=== PATIENT | female | born 1985 | race Caucasian/White ===

== ENCOUNTER 2018-10-12 19:58 | Inpatient (IN) | payer MEDICAID, OTHER ==
[2018-10-12] MEDS ORDERED: CERVIDIL VG ONE (23:53)
[2018-10-12] MEDS ORDERED: STADOL IV PRN (23:53)
[2018-10-12] MEDS ORDERED: AMPICILLIN/NS 2 GM/100 ML 2 GM/100 ML BAG IV ONE (23:53)
[2018-10-13 00:22] LABS: Hematocrit 27.2 % (30.3-42.9); Hemoglobin 8.5 gm/dl (10.1-14.3); Mean Corpuscular HGB Conc 31 % (30-34); Platelet Count 263 K/mm3 (140-440); Red Blood Count 4.34 M/mm3 (3.65-5.03)
[2018-10-13 00:26] LABS: Mean Corpuscular Volume 63 fl (79-97)
[2018-10-13 00:27] LABS: Red Cell Distribution Width 22.8 % (13.2-15.2)
[2018-10-13] MEDS: LACTATED RINGERS 1,000 ML IV SCH ×2 (00:30→11:28)
[2018-10-13] MEDS: SUBLIMAZE IV PRN ×2 (05:51→12:09)
[2018-10-13] MEDS ORDERED: AMPICILLIN/NS 1 GM/50 ML 1 GM/50 ML BAG IV SCH (06:00)
[2018-10-13] MEDS ORDERED: AMPICILLIN/NS 1 GM/50 ML 1 GM/50 ML BAG ONE (06:01)
--- NOTE | 2018-10-13 11:38 | History and Physical Report ---
History of Present Illness Date of examination: 10/13/18 (11:18) Date of admission: 10/12/18 19:58 Chief complaint: Induction of labor History of present illness: 33yo Fe DAT 10/17/2018 ([place]) 39w 3d presents for induction of labor. Pt initiated care with [facility] at 7w4d. Her is significant for AMA (33yo), maternal obesity with history of macrosomia (proven pelvis #9lbs, early GTT 118), Anemia (Ferrous sulfate 325mg BID), LGA (no Ultrasound report available), hx of EAB 2016 d/t Trisomy 18. 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 denies: smoking, alcohol abuse, prescription drug abuse, IV drug use - Obstetrical History Expected Date of Delivery: 10/17/18 Actual Gestation: 39 Week(s) 3 Day(s) : 5 Para: 2 Hx # Term Pregnancies: 2 Number of Pregnancies: 0 Spontaneous Abortions: 2 Induced : 0 Number of Living Children: 2 #1 Gender: Male year: 2,006 Birthweight: 4.082 kg Method of Delivery: Vaginal Gestational age at delivery: 40 Complications: other (macrosomia ) #2 Infant Gender: Male year: 2,016 Birthweight: 3.629 kg Method of Delivery: Vaginal Gestational age at delivery: 40 Complications: none #3 year: 2,016 (SAB) #4 year: 2,017 (Termination; Trimsomy 18) Medications and Allergies Allergies Allergy/AdvReac Type Severity Reaction Status Date / Time No Known Allergies Allergy Verified 10/13/18 00:06 Home Medications Medication Instructions Recorded Confirmed Last Taken Type Vit 93/Iron Fum/Folic 1 each PO QDAY #30 tablet 02/12/15 Unknown Rx [ Formula Tablet] Active Meds: Active Medications Butorphanol Tartrate (Stadol) 2 mg IV Q2H PRN PRN Reason: Pain , Severe (7-10) Fentanyl (Sublimaze) 100 mcg IV Q2H PRN PRN Reason: Labor Pain Last Admin: 10/13/18 05:51 Dose: 100 mcg Documented by: Lactated Ringer's (Lactated Ringers) 1,000 mls @ 125 mls/hr IV DIRECT MARY Last Admin: 10/13/18 00:30 Dose: 125 mls/hr Documented by: Ampicillin Sodium (Ampicillin/Ns 1 Gm/50 Ml) 1 gm in 50 mls @ 100 mls/hr IV Q4HR MARY; Protocol Review of Systems Cardiovascular: no chest pain, no shortness of breath Respiratory: no shortness of breath Breasts: normal Gastrointestinal: no abdominal pain, no nausea, no vomiting, no diarrhea Genitourinary: normal appearance, contractions (irregular), no genital sores Integumentary: no rash, no sores, no lesions Endocrine: other (Morbid obesity) - Vital Signs Vital signs: Vital Signs Pulse Pulse Ox 71 98 10/12/18 22:10 10/12/18 22:10 Temp Pulse Resp BP Pulse Ox 97.8 F 68 20 97/53 98 10/13/18 07:55 10/13/18 10:09 10/13/18 05:51 10/13/18 10:09 10/13/18 05:33 - Physical Exam Breasts: Positive: normal Cardiovascular: Regular rate, Normal S1, Normal S2, No murmurs Lungs: Positive: Clear to auscultation, Normal air movement Abdomen: Positive: normal appearance, soft, normal bowel sounds. Negative: distention Genitourinary (Female): Positive: normal external genitalia, normal perenium. Negative: perineal/vulvar lesions Vulva: both: normal Vagina: Positive: normal moisture Uterus: Positive: enlarged (Gravid) Anus/Rectum: Positive: normal perianal skin Extremities: Positive: normal Deep Tendon Reflex Grade: Normal +2 - Obstetrical FHR: category 1 Uterine Contraction Monitor Mode: External Cervical Dilatation: 6 (Cervidil removed. AROM, lg amt clear fluid. IUPC incerted in gentle fasion. FSE applied, ) Cervical Effacement Percentage: 80 station: -2 Uterine Contraction Pattern: Irregular Uterine Tone Measurement Phase: Resting Uterine Contraction Intensity: Mild Results Result Diagrams: 10/12/18 22:40 Abnormal lab results 10/12/18 Range/Units 22:40 Hgb 8.5 L (10.1-14.3) gm/dl Hct 27.2 L (30.3-42.9) % MCV 63 L (79-97) fl MCH 20 L (28-32) pg RDW 22.8 H (13.2-15.2) % All other labs normal. Assessment and Plan A: Term IUP at 39w3d AMA; 33 yo Morbid obesity GBS positive Asymptomatic Anemia; FeS04 325mg BID Category 1 tracing Cervidil IOL 10/12; Removed this am AROM 10/13 @11:18, lg amt, clear fluid. IUPC and FSE placed without difficulty P: Routine labor orders May have IV pain med/epidural PRN GBS prophylaxis Pitocin Augmentation Anticiapte
[2018-10-13] MEDS ORDERED: PITOCin/NS 30 UNIT/500ML 30 UNITS/500 ML BAG IV SCH (12:00)
[2018-10-13] MEDS ORDERED: PITOCin/NS 20 UNIT/1000ML DRIP 20 UNITS/1,000 ML BAG IV SCH (12:00)
--- NOTE | 2018-10-13 13:11 | Procedure Note ---
OB Delivery Note - Delivery Date of Delivery: 10/13/18 (12:33) Surgeon: OUMSANE GALLARDO (ANTHONY) Estimated blood loss: <100cc - Vaginal Delivery presentation: vertex Delivery position: OA Delivery induction: cervidil Delivery augmentation: rupture of membranes, pitocin Delivery monitor: internal FHT, internal uterine Route of delivery: (12:33) Delivery placenta: spontaneous (12:40) Delivery cord: nuchal cord (x3 loose), 3 umbilical vessels Episiotomy: none Delivery laceration: 1st degree (small 1st degree; approximates well; left unrepaired) Anesthesia: intravenous Delivery comments: viable male , DEREK position, loose nuchal cord x3, delivered intact via somersault maneuver at 12:33. Spontaneous loud lusty cry. Infant placed [id number] on mothers abdomen. Delayed cord clamping and then cut by FOB with my guidance. Cord blood collected per protocol. Spontaneous mejía delivery of intact placenta at 12:40. Small 1st degree perineal laceration left unrepaired. Approximates well. FF@U-2. EBL <100cc. Infant and mother left in stable condition in L&D. - Infant A at 1 minute: 8 at 5 minutes: 9 Gender: Male (9lbs 10oz, 4376 grams, 21.5")
[2018-10-13] MEDS ORDERED: PITOCin/NS 20 UNIT/1000ML DRIP 20,000 MILLIUNITS/1,000 ML BAG IV ONE (15:06)
[2018-10-13] MEDS ORDERED: TYLENOL PO PRN (16:02)
[2018-10-13] MEDS ORDERED: TUCKS PAD TP PRN (16:02)
[2018-10-13] MEDS ORDERED: DULCOLAX PR PRN (16:02)
[2018-10-13] MEDS ORDERED: LANSINOH TP PRN (16:02)
[2018-10-13] MEDS ORDERED: BENADRYL PO PRN (16:02)
[2018-10-13] MEDS ORDERED: NORCO 5/325 PO PRN (16:02)
[2018-10-13] MEDS ORDERED: PHENERGAN PO PRN (16:02)
[2018-10-13] MEDS ORDERED: ZOFRAN IV PRN (16:02)
[2018-10-13] MEDS ORDERED: MILK OF MAGNESIA PO PRN (16:02)
[2018-10-13] MEDS ORDERED: SODIUM CHLORIDE FLUSH SYRINGE 10 ML IV NR (17:00)
[2018-10-13] MEDS: IBUPROFEN PO SCH ×2 (18:24→22:48)
[2018-10-14 05:42] LABS: Hematocrit 25.1 % (30.3-42.9); Hemoglobin 7.7 gm/dl (10.1-14.3)
[2018-10-14] MEDS: IBUPROFEN PO SCH ×2 (07:10→21:58)
--- NOTE | 2018-10-14 09:31 | Progress Note ---
Assessment and Plan A: 33 yo , PPD1, AMA Anemia P: Infed 100 mg IM x one dose Continue Iron TID po with OJ at home after d/c D/C home today F/U in office in 6 wks Subjective - Subjective Date of service: 10/14/18 Principal diagnosis: Patient reports: other (No concerns offered, states she is feeling well and wishes to go home today.) Objective - Vital Signs Vital Signs: Vital Signs - 12hr 10/13/18 10/14/18 22:20 07:55 Temperature 98.0 F 98.4 F Pulse Rate 71 77 Respiratory 20 18 Rate Blood Pressure 124/69 102/64 O2 Sat by Pulse 98 98 Oximetry - Exam Breasts: normal Cardiovascular: Regular rate, Normal S1, Normal S2 Lungs: Clear to auscultation, Normal air movement Abdomen: Present: normal appearance, normal bowel sounds Uterus: Present: firm, fundal height below umbilicus (U-1) Deep Tendon Reflex Grade: Normal +2 - Labs Labs: Abnormal Labs 10/12/18 10/14/18 22:40 05:31 Hgb 8.5 L 7.7 L Hct 27.2 L 25.1 L MCV 63 L MCH 20 L RDW 22.8 H Laboratory Results - last 24 hr 10/12/18 10/14/18 22:40 05:31 Hgb 7.7 L Hct 25.1 L RPR Nonreactive
--- NOTE | 2018-10-14 09:35 | Discharge Summary ---
Providers - Providers Date of Admission: 10/12/18 19:58 Date of discharge: 10/14/18 Attending physician: JUAN CAGE MD Primary care physician: JUAN CAGE MD Hospitalization Delivery: Episiotomy: none Laceration: 1st degree Other procedures: none complications: other (Anemia) Discharge diagnosis: IUP at term delivered [place] baby: male Hospital course: See Admission H & P; OB delivery summary and OB PP notes Condition at discharge: Stable Disposition: DC-01 TO HOME OR SELFCARE - Discharge Diagnoses (1) (normal spontaneous vaginal delivery) Status: Acute Plan - Provider Discharge Summary Activity: routine, no sex for 6 weeks, no heavy lifting 4 weeks, no strenuous exercise Diet: routine Instructions: other (Discussed importance of continuing iron supplementation at home, three times per day. Verbalized understanding) Additional instructions: [] Smoking cessation referral if applicable(refer to patient education folder for contact #) [] Refer to [facility] Booklet Call your doctor immediately for: * Fever > 100.5 * Heavy vaginal bleeding ( >1 pad per hour) * Severe persistent headache * Shortness of breath * Reddened, hot, painful area to leg or breast * Drainage or odor from incision. * Keep incision clean and dry at all times and follow doctor's instructions regarding bathing/showering - Follow up plan Follow up: JUAN CAGE MD [Primary Care Provider] - 6 Weeks
[2018-10-14] MEDS ORDERED: INFED IM NR ×2 (10:00→20:00)
[2018-10-15] MEDS: IBUPROFEN PO SCH (05:43)
[2018-10-15 10:31] VITALS: BP 114/64
== END 2018-10-15 16:15 | disposition home or self-care (01) | DRG 807 ==
LOC: LD 19:58 → OB 10-13 15:29
PROVIDERS: ADMIT Obstetrics & Gynecology; ATTEND Obstetrics & Gynecology
PROC: 10E0XZZ Delivery of Products of Conception, External Approach (ICD-10-PCS; principal; 2018-10-13)
PROC: 10H07YZ Insertion of Other Device into Products of Conception, Via Natural or Artificial Opening (ICD-10-PCS; 2018-10-13)
PROC: 10907ZC Drainage of Amniotic Fluid, Therapeutic from Products of Conception, Via Natural or Artificial Opening (ICD-10-PCS; 2018-10-13)
PROC: 3E0P7VZ Introduction of Hormone into Female Reproductive, Via Natural or Artificial Opening (ICD-10-PCS; 2018-10-13)
DX: O99.824 Streptococcus B carrier state complicating childbirth (principal); Z37.0 Single live birth; Z3A.39 39 weeks gestation of pregnancy; O69.81X0 Labor and delivery complicated by cord around neck, without compression, not applicable or unspecified; E66.01 Morbid (severe) obesity due to excess calories; D64.9 Anemia, unspecified; O99.214 Obesity complicating childbirth; O99.02 Anemia complicating childbirth; O70.0 First degree perineal laceration during delivery
CPT/HCPCS: 36415; 85014; 85018; 85027; 86592; 86850; 86900; 86901; G0378; J0290; J1750; J2590; J3010; J7120